=== PATIENT | female | born 1970 | race Two or more races ===

== ENCOUNTER 2017-07-29 21:30 | Emergency (ER) | payer MEDICAID ==
[~2017-07-29] VITALS: Ht 157.5 cm; Wt 66.7 kg
[2017-07-29 23:07] LABS: Urine Bacteria NONE SEEN /hpf (None Seen); Urine Blood Negative /uL (Negative); Urine Specific Gravity 1.012 (1.001-1.035); Urine WBC 1 /hpf (0 - 5)
[2017-07-29 23:22] LABS: Basophils # (auto) 0 uL; Basophils % (auto) 0.8 % (0.0-2.0); Eosinophils # (auto) 0.1 uL; Eosinophils % (auto) 1.8 % (0.0-7.0); Hematocrit 37.9 % (36.0-46.0); Hemoglobin 12.5 g/dL (12.2-16.2); Lymphocytes # (auto) 1.7 uL; Lymphocytes % (auto) 36.8 % (10.0-50.0); Mean Corpuscular Hemoglobin 30.1 pg (28.0-32.0); Mean Corpuscular Volume 91.4 fL (80.0-100.0); Monocytes # (auto) 0.4 uL; Monocytes % (auto) 9.4 % (0.0-12.0); Neutrophils # (auto) 2.3 uL; Neutrophils % (auto) 51.2 % (37.0-80.0); Nucleated Red Blood Cells % 0.2 %; Platelet Count (auto) 233 10^3/uL (140-450); Red Blood Cells 4.14 10^6/uL (4.0-5.20); Red Cell Distribution Width 15.4 % (11.8-14.3); White Blood Cell 4.6 10^3/uL (4.4-10.8)
[2017-07-29 23:30] LABS: Albumin 4.1 g/dL (3.4-5.0); BUN/Creatinine Ratio 28.2; Calcium 8.8 mg/dL (8.5-10.1); Potassium 3.9 mmol/L (3.5-5.1)
[2017-07-29 23:32] LABS: Bilirubin, Total 0.3 mg/dL (0.2-1.0); Total Protein 7.1 g/dL (6.4-8.2)
[2017-07-30 00:30] VITALS: BP 112/62
== END 2017-07-30 02:29 | disposition home or self-care (01) ==
LOC: ER 21:30
DX: N30.90 Cystitis, unspecified without hematuria (principal); D21.9 Benign neoplasm of connective and other soft tissue, unspecified; Z98.51 Tubal ligation status
CPT/HCPCS: 36415; 74176; 80053; 81001; 85025

== ENCOUNTER 2025-07-14 18:21 | Inpatient (IN) | payer MEDICAID ==
[~2025-07-14] VITALS: Ht 157.5 cm; Wt 68.2 kg
[2025-07-14 18:58] LABS: Hematocrit 38.4 % (36.0-46.0); Hemoglobin 12.9 g/dL (12.2-16.2); Mean Corpuscular Hemoglobin 30.9 pg (28.0-32.0); Mean Corpuscular Volume 92.0 fL (80.0-100.0); Nucleated Red Blood Cells % 0.1 %
[2025-07-14 19:16] LABS: Alanine Aminotransferase 37 U/L (7-40); Albumin 4.2 g/dL (3.2-4.8); Alkaline Phosphatase 90 U/L (46-116); Anion Gap 7 (5-15); BUN/Creatinine Ratio 21.3 (10.0-20.0); Bilirubin, Total 0.4 mg/dL (0.2-1.0); Blood Urea Nitrogen 19 mg/dL (9-23); Calcium 9.3 mg/dL (8.7-10.4); Carbon Dioxide 29 mmol/L (20-31); Glucose 103 mg/dL (74-106); Magnesium 1.9 mg/dL (1.6-2.6); Potassium 3.8 mmol/L (3.5-5.1); Sodium 144 mmol/L (136-145); Total Protein 6.2 g/dL (5.7-8.2)
--- NOTE | 2025-07-14 19:17 | ED.PDOC ---
History of Present Illness HPI Comments 55 y/o Egyptian-speaking F presents with c/c of nonradiating, substernal chest pain. Patient endorses on 2x day history of constant, tightening pain, that worsens at night time. Patient also complains of intermittent muscle spasms and reports an isolated episode of eye twitching/droop 2x months ago. No reported shortness of breath, nausea, vomiting, or further acute symptoms. Patient is being evaluated for possible asthma, currently, and reports only history of C- section and family history of heart disease. 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: No Pertinent PHYSICAL EDUCATION TEACHER History Family History Family History: Reviewed,noncontributory to illness, No family hx of Cancer, No family hx of DM, No family hx of HTN, No family hx ofKidney shakeel, No family hx of Liver shakeel, No family hx of Lung shakeel, No family hx of Stroke, Family hx of heart shakeel Social History Smoker: Non-Smoker Alcohol: Denies ETOH Use Drugs: Denies Drug Use Lives In: Home Constitutional: denies: chills, diaphoresis, fatigue, fever, malaise, sweats, weakness, others EENTM: reports: others (eye twitching/droop); denies: blurred vision, double vision, ear bleeding, ear discharge, ear drainage, ear pain, ear ringing, eye pain, eye redness, hearing loss, mouth pain, mouth swelling, nasal discharge, nose bleeding, nose congestion, nose pain, photophobia, tearing, throat pain, throat swelling, voice changes Respiratory: denies: cough, hemoptysis, orthopnea, SOB at rest, shortness of breath, SOB with excertion, stridor, wheezing, others Cardiovascular: reports: chest pain; denies: dizzy spells, diaphoresis, Dyspnea on exertion, edema, irregular heart beat, left arm pain, lightheadedness, palpitations, PND, syncope, others Gastrointestinal: denies: abdomen distended, abdominal pain, blood streaked bowels, constipated, diarrhea, dysphagia, difficulty swallowing, hematemesis, melena, nausea, poor appetite, poor fluid intake, rectal bleeding, rectal pain, vomiting, others Genitourinary: denies: abnormal vagina bleeding, burning, dyspareunia, dysuria, flank pain, frequency, hematuria, incontinence, pain, , vagina discharge, urgency, others Neurological: denies: dizziness, fainting, headache, left sided numbness, left sided weakness, numbness, paresthesia, pre-existing deficit, right sided numbness, right sided weakness, seizure, speech problems, tingling, tremors, weakness, others Musculoskeletal: reports: others (muscle spasms ); denies: back pain, gout, joint pain, joint swelling, muscle pain, muscle stiffness, neck pain Integumetry: denies: bruises, change in color, change in hair/nails, dryness, laceration, lesions, lumps, rash, wounds, others Allergic/Immunocompromised: denies: Difficulty Healing, Frequent Infections, Hives, Itching, others Hematologic/Lymphatic: denies: anemia, blood clots, easy bleeding, easy bruising, swollen glands, others Endocrine: denies: excessive hunger, excessive sweating, excessive thirst, excessive urination, flushing, intolerance to cold, intolerance to heat, unexplained weight gain, unexplained weight loss, others Psychiatric: denies: anxiety, bipolar disorder, depression, hopeless, panic disorder, schizophrenia, sleepless, suicidal, others All Other Systems: Reviewed and Negative Physical Exam General Appearance: Moderate Distress HEENT: Normal ENT Inspection, Pharynx Normal, TMs Normal Neck: Full Range of Motion, Non-Tender, Normal, Normal Inspection Respiratory: Chest Non-Tender, Lungs Clear, No Accessory Muscle Use, No Respiratory Distress, Normal Breath Sounds Cardiovascular: No Edema, No JVD, No Murmur, No Gallop, Normal Peripheral Pulses, Regular Rate/Rhythm Breast Exam: Deferred Gastrointestinal: No Organomegaly, Non Tender, No Pulsatile Mass, Normal Bowel Sounds, Soft Genitalia: Deferred Pelvic: Deferred Rectal: Deferred Extremities: No calf tenderness, Normal capillary refill, Normal inspection, Normal range of motion, Non-tender, No pedal edema Musculoskeletal : Apperance: Normal 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 Was a procedure done?: No EKG EKG : Pulse Rate (adult): 68 [place]: Normal Cardiac Rhythm: NSR Block: None Hypertrophy: None ST: Normal Differential Dx Considerations may include: GA, PE, ACS, URI, PNA, angina, anxiety, among others X-Ray, Labs, Meds, VS Vital Signs Date Time Temp Pulse Resp B/P (MAP) Pulse Ox O2 Delivery O2 Flow Rate FiO2 07/14/25 20:03 66 07/14/25 19:17 68 07/14/25 18:34 98.5 68 18 123/77 100 98.5 Lab Test 07/14/25 19:37 07/14/25 18:40 Range/Units Troponin I High Sensitivity 4 4 </=34 ng/L White Blood Count 5.1 4.4-10.8 10^3/uL Red Blood Count 4.17 4.0-5.20 10^6/uL Hemoglobin 12.9 12.2-16.2 g/dL Hematocrit 38.4 36.0-46.0 % Mean Corpuscular Volume 92.0 80.0-100.0 fL Mean Corpuscular Hemoglobin 30.9 28.0-32.0 pg Mean Corpuscular Hemoglobin Concent 33.6 32.0-36.0 g/dL Red Cell Distribution Width 14.0 11.8-14.3 % Platelet Count 196 140-450 10^3/uL Mean Platelet Volume 8.9 6.9-10.8 fL Neutrophils (%) (Auto) 60.5 37.0-80.0 % Lymphocytes (%) (Auto) 30.8 10.0-50.0 % Monocytes (%) (Auto) 6.8 0.0-12.0 % Eosinophils (%) (Auto) 1.4 0.0-7.0 % Basophils (%) (Auto) 0.5 0.0-2.0 % Neutrophils # (Auto) 3.1 1.6-8.6 10 ^3/uL Lymphocytes # (Auto) 1.6 0.4-5.4 10 ^3/uL Monocytes # (Auto) 0.3 0-1.3 10 ^3/uL Eosinophils # (Auto) 0.1 0-0.8 10 ^3/uL Basophils # (Auto) 0 0-0.2 10 ^3/uL Nucleated Red Blood Cells 0.1 % Sodium Level 144 136-145 mmol/L Potassium Level 3.8 3.5-5.1 mmol/L Chloride Level 108 H 98-107 mmol/L Carbon Dioxide Level 29 20-31 mmol/L Anion Gap 7 5-15 Blood Urea Nitrogen 19 9-23 mg/dL Creatinine 0.89 0.550-1.02 mg/dL Glomerular Filtration Rate Calc 77 >90 mL/min BUN/Creatinine Ratio 21.3 H 10.0-20.0 Serum Glucose 103 74-106 mg/dL Calcium Level 9.3 8.7-10.4 mg/dL Magnesium Level 1.9 1.6-2.6 mg/dL Total Bilirubin 0.4 0.2-1.0 mg/dL Aspartate Amino Transferase (AST) 34 13-40 U/L Alanine Aminotransferase (ALT) 37 7-40 U/L Alkaline Phosphatase 90 46-116 U/L Total Protein 6.2 5.7-8.2 g/dL Albumin 4.2 3.2-4.8 g/dL PROCEDURE(s): CXR2 - CHEST TWO VIEWS ROUTINE IMPRESSION: 1. No acute cardiopulmonary disease. 2. Scarring anteriorly in the right lower lobe. IV Hep-Lock has been established The patient's CBC and chemistry panel are within normal limits The troponin level x2 is negative At this time, the patient has been acting like to the hospitalist The patient understands and agrees with the management Images Reviewed?: Images reviewed and evaluated by me Time of 1ST Reevaluation: 19:00 Reevaluation 1ST: Unchanged Patient Education/Counseling: Diagnosis, Treatment, Prognosis Family Education/Counseling: No Family Present SEPSIS Sepsis Screen Date sepsis recognized/suspect: Jul 14, 2025 Time Sepsis recognized/suspect: 1833 Recent Procedure: No On Antibiotic Therapy: No Respiratory Rate >20: No Heart Rate >90: No Temp<36 C (96.8 F) or >38.3 C: No SBP <90 or MAP <65 mmHG: No New Acute Mental Status Change: No Is the patient on CPAP, BIPAP,: No Physician Orders Urinalysis (07/14/25 18:38) Troponin-I Hs (07/14/25 21:38) Electrocardigram (07/14/25 19:38) Electrocardigram (07/14/25 21:38) Chest Two Views Routine (07/14/25 19:06) Heplock Iv (07/14/25 ) Vital Signs Date Time Temp Pulse Resp B/P (MAP) Pulse Ox O2 Delivery O2 Flow Rate FiO2 07/14/25 20:03 66 07/14/25 19:17 68 07/14/25 18:34 98.5 68 18 123/77 100 98.5 Laboratory Tests Test 07/14/25 18:40 White Blood Count 5.1 10^3/uL (4.4-10.8) Departure 1 Departure Time of Disposition: 20:49 Impression: Primary Impression: Acute chest pain Disposition: ADMITTED INPATIENT Admit to: [facility] Condition: Fair Critical Care Note Critical Care Time?: No Stability Stability form required: Yes Unstable for transfer: Telemetry monitoring (Telemetry monitoring required), ED Physician Assesment (Clinical assesment) Heart Score Heart Score: Heart Score Response (Comments) Value History Moderate Suspicious 1 EKG Normal 0 Age 45-64 1 Risk Factors 1 or 2 risk factors 1 Troponin Normal limit 0 Total 3 I personally scribed for MARY ELAINE MD ([email or web address]) on 07/14/25 at 19:17. Electronically submitted by Marshall Ireland ([email or web address]). I personally scribed for MARY ELAINE MD ([email or web address]) on 07/14/25 at 20:01. Electronically submitted by Marshall Ireland [email or web address]). MARY ELAINE MD Jul 14, 2025 19:17
[2025-07-14 19:19] LABS: Chloride 108 mmol/L (98-107)
--- NOTE | 2025-07-14 19:53 | DVH ---
XY CHEST TWO VIEWS ROUTINE CLINICAL HISTORY: cp COMPARISON: None TECHNIQUE: Frontal and lateral view of the chest was obtained FINDINGS: Lines and Tubes: None Lungs: No focal consolidation. Pleura: No effusion. No pneumothorax. Cardiomediastinal contours: Unremarkable Bones: No acute osseous abnormality. IMPRESSION: 1. No acute cardiopulmonary disease. 2. Scarring anteriorly in the right lower lobe.
--- NOTE | 2025-07-14 20:06 | ECG ---
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
[2025-07-15] MEDS ORDERED: KETOROLAC TROMETH 30 MG/ML 1ML VIAL IV PRN (03:15)
[2025-07-15] MEDS: ACETAMINOPHEN 325 MG TAB PO SCH (03:15)
--- NOTE | 2025-07-15 04:09 | DVHHPRES ---
History of Present Illness Resident Creating Document: BERNARD SANDHU RESIDENT History of Present Illness Rosanna Cisneros is a 55-year-old Indonesian-speaking female with past medical history of dyslipidemia presented to the hospital with complaints of chest pain since 3 days. Patient reports that she went to her PCP who send her to the ER. She also complains of associated spasms and cramps in the arms and eyes Since 5 months. She also reports of a right shoulder pain since 3 months. She denies any fever, shortness of breath or abdominal pain. PMHx: dyslipidemia, asthma PSHx: section Family history: coronary artery disease in grandfather Social history: denies smoking, alcohol or illicit drug use. Lives with family in his. Home medication: None Allergic history: no known allergies Review of Systems Review of Systems General: patient denies fever, fatigue, weaknes, sweating, any recent changes in appetite and weight HEENT: No headaches, visiual changes, hearing loss, tinnitus, nasal congestion and discharge, and sore throat. Cardiovascular: complains of chest pain Respiratory: No cough, and wheezing. Gastrointestinal: Denies nausea, vomiting, dysphagia, odynophagia, heartburn, abdominal pain, flatulence, bloating, diarrhea, constipation, change in stool, or blood in stool. Genitourinary: No dysuria, hematuria, discharge, frequency, urgency, nocturia, incontinence, and urinary retention. Endocrine: No heat or cold intolerance, polydipsia, polyuria, and polyphagia. Neurological: No dizziness, extremity weakness and numbness, tremors, gait disturbance, seizures, and memory impairment. Psychiatric: Denies depression, anxiety,or insomnia. Musculoskeletal: complains of shoulder pain Skin: No rashes, itching, skin lesion, changes in hair, nail, skin texture and breast. Hematologic/Lymphatic: Denies easy bruising, bleeding tendencies, or lymph node enlargement. Allergies: Coded Allergies: NO KNOWN ALLERGIES (Unverified , 05/09/11) Medications Current Medications Medications Dose Ordered Sig/[place] Route Start Time Stop Time Status Last Admin Dose Admin Acetaminophen 650 mg Q6HR PO 07/15/25 03:15 Ketorolac Tromethamine 15 mg Q6HPRN PRN IV 07/15/25 03:15 07/20/25 03:14 Aspirin 81 mg DAILY PO 07/15/25 10:00 Atorvastatin Calcium 40 mg HS PO 07/15/25 22:00 Enoxaparin Sodium 40 mg DAILY SC 07/15/25 10:00 Exam Vital Signs Vital Signs Date Time Temp Pulse Resp B/P (MAP) Pulse Ox O2 Delivery O2 Flow Rate FiO2 07/15/25 03:02 97.1 63 15 137/88 (104) 98 97.1 Exam General Appearance: Alert, Oriented X3, Cooperative, No acute distress HEENT: Atraumatic, PERRLA, EOMI, Mucous membrane moist/pink Respiratory: Clear to auscultation, Normal air movement Cardiovascular: Regular rate, Normal S1, Normal S2, No murmurs, chest wall tenderness present Abdominal: Normal bowel sounds, Soft, No tenderness, No hepatospenomegaly, No masses Extremities: No clubbing, No cyanosis, No edema, Normal pulses, No tenderness/swelling Skin: No rashes, No breakdown, No significant lesion Neuro: Normal gait, Normal speech, Strength at 5/5 X4 ext, Normal tone, Sensation intact, Cranial nerves 3-12 NL, Reflexes 2+ Psych/Mental Status: Mental status NL, Mood NL Labs/Xrays Labs Test 07/14/25 19:37 07/14/25 18:40 Range/Units Troponin I High Sensitivity 4 </=34 ng/L White Blood Count 5.1 4.4-10.8 10^3/uL Red Blood Count 4.17 4.0-5.20 10^6/uL Hemoglobin 12.9 12.2-16.2 g/dL Hematocrit 38.4 36.0-46.0 % Mean Corpuscular Volume 92.0 80.0-100.0 fL Mean Corpuscular Hemoglobin 30.9 28.0-32.0 pg Mean Corpuscular Hemoglobin Concent 33.6 32.0-36.0 g/dL Red Cell Distribution Width 14.0 11.8-14.3 % Platelet Count 196 140-450 10^3/uL Mean Platelet Volume 8.9 6.9-10.8 fL Neutrophils (%) (Auto) 60.5 37.0-80.0 % Lymphocytes (%) (Auto) 30.8 10.0-50.0 % Monocytes (%) (Auto) 6.8 0.0-12.0 % Eosinophils (%) (Auto) 1.4 0.0-7.0 % Basophils (%) (Auto) 0.5 0.0-2.0 % Neutrophils # (Auto) 3.1 1.6-8.6 10 ^3/uL Lymphocytes # (Auto) 1.6 0.4-5.4 10 ^3/uL Monocytes # (Auto) 0.3 0-1.3 10 ^3/uL Eosinophils # (Auto) 0.1 0-0.8 10 ^3/uL Basophils # (Auto) 0 0-0.2 10 ^3/uL Nucleated Red Blood Cells 0.1 % Sodium Level 144 136-145 mmol/L Potassium Level 3.8 3.5-5.1 mmol/L Chloride Level 108 H 98-107 mmol/L Carbon Dioxide Level 29 20-31 mmol/L Anion Gap 7 5-15 Blood Urea Nitrogen 19 9-23 mg/dL Creatinine 0.89 0.550-1.02 mg/dL Glomerular Filtration Rate Calc 77 >90 mL/min BUN/Creatinine Ratio 21.3 H 10.0-20.0 Serum Glucose 103 74-106 mg/dL Calcium Level 9.3 8.7-10.4 mg/dL Magnesium Level 1.9 1.6-2.6 mg/dL Total Bilirubin 0.4 0.2-1.0 mg/dL Aspartate Amino Transferase (AST) 34 13-40 U/L Alanine Aminotransferase (ALT) 37 7-40 U/L Alkaline Phosphatase 90 46-116 U/L Total Protein 6.2 5.7-8.2 g/dL Albumin 4.2 3.2-4.8 g/dL SEPSIS Sepsis Screen Date sepsis recognized/suspect: Jul 14, 2025 Time Sepsis recognized/suspect: 1833 Recent Procedure: No On Antibiotic Therapy: No Respiratory Rate >20: No Heart Rate >90: No Temp<36 C (96.8 F) or >38.3 C: No SBP <90 or MAP <65 mmHG: No New Acute Mental Status Change: No Is the patient on CPAP, BIPAP,: No Physician Orders Admit (07/14/25 23:33) Code Status (07/14/25 23:33) Complete Blood Count (07/15/25 04:00) Comprehensive Metabolic Panel (07/15/25 04:00) Cardiac Diet-2gna,Lofat,Lochol (07/15/25 Breakfast) Condition: Fair (07/14/25 23:33) Echo 2d Mode Cardiac Dop (07/15/25 03:01) Urinalysis (07/15/25 03:01) Drug Screen (07/15/25 03:01) PTPTT (07/15/25 03:01) Thyroid Stimulating Hormone (07/15/25 03:01) Lipid Panel (07/15/25 03:01) Acetaminophen Tablet (Tylenol Tablet) (07/15/25 03:15) Ketorolac Injection (Toradol Injection) (07/15/25 03:15) Aspirin Enteric Coated Tablet (Ecotrin E (07/15/25 10:00) Atorvastatin (Lipitor) (07/15/25 22:00) Enoxaparin Sodium (Lovenox) (07/15/25 10:00) Vital Signs Date Time Temp Pulse Resp B/P (MAP) Pulse Ox O2 Delivery O2 Flow Rate FiO2 07/15/25 03:02 97.1 63 15 137/88 (104) 98 97.1 Laboratory Tests Test 07/14/25 18:40 White Blood Count 5.1 10^3/uL (4.4-10.8) Assessment/Plan Assessment/Plan Assessment and plan Chest pain possibly due to unstable angina/ musculoskeletal EKG Echo Aspirin, atorvastatin Lipid panel, TSH IV Toradol p.r.n., scheduled Tylenol Dyslipidemia Not on any home medication Follow lipid panel History of asthma Follow up with PCP on discharge PUD prophylaxis: not needed DVT prophylaxis: Levonox 40mg Barriers to discharge: Medical diagnosis and management in progress. Patient lives with family. Independent for ADL. PCP: Dr. Genitle Specialist Relevent To Admission: None Case discussed with Dr. Donald Code Status: Full Code. Complex patient care discussion needed. Spend total 33 minutes for bedside assessment, case discussion and management. Plan discussed with: Patient My Orders Orders - BERNARD SANDHU RESIDENT Procedure Category Date Status Time Admit ADMIT 07/14/25 Transmitted 23:33 Code Status CODE 07/14/25 Transmitted 23:33 Complete Blood Count LAB 07/15/25 Logged 04:00 Comprehensive LAB 07/15/25 Logged Metabolic Panel 04:00 Cardiac DIET 07/15/25 Transmitted Diet-2gna,Lofat,Lochol Breakfast Condition: Fair PETE 07/14/25 In Process 23:33 Echo 2d Mode Cardiac US 07/15/25 Logged DOP 03:01 Urinalysis LAB 07/15/25 Uncollected 03:01 Drug Screen LAB 07/15/25 Logged 03:01 PTPTT LAB 07/15/25 Logged 03:01 Thyroid Stimulating LAB 07/15/25 Logged Hormone 03:01 Lipid Panel LAB 07/15/25 Logged 03:01 Acetaminophen Tablet PHA 07/15/25 In Process (Tylenol Tablet) 03:15 Ketorolac Injection PHA 07/15/25 In Process (Toradol Injection) 03:15 Aspirin Enteric PHA 07/15/25 In Process Coated Tablet 10:00 Atorvastatin (Lipitor) PHA 07/15/25 In Process 22:00 Enoxaparin Sodium PHA 07/15/25 In Process (Lovenox) 10:00 Visit Coding STANDARD RES Billing Provider: KANU DONALD MD Date of Service if different f: Jul 15, 2025 Common Visit Codes: 52589-EZBWIVA INP/OBS CARE (HIGH) Secondary Visit Codes: 61055-CMSYSJZN CARE PLAN 30 MINUTES BERNARD SANDHU RESIDENT Jul 15, 2025 04:09
[2025-07-15 04:58] VITALS: BP 129/76; PULSE 86; RESP 18; TEMP 98.2; O2SAT 98; O2SAT 99
[2025-07-15 05:00] VITALS: BP 129/80; PULSE 65; RESP 18; TEMP 97.8; O2SAT 99
[2025-07-15 08:00] VITALS: PULSE 66; PULSE 69; RESP 16; O2SAT 99
[2025-07-15 08:18] LABS: Hematocrit 42.0 % (36.0-46.0); Hemoglobin 14.0 g/dL (12.2-16.2); Mean Corpuscular Hemoglobin 30.4 pg (28.0-32.0); Mean Corpuscular Volume 91.7 fL (80.0-100.0); Nucleated Red Blood Cells % 0.1 %
[2025-07-15 08:41] LABS: INR 1.02 (0.9-1.15); Partial Thromboplastin Time 27.1 SEC (24.5-34.5); Prothrombin Time 10.8 sec (9.3-11.8)
[2025-07-15 08:58] LABS: Triglycerides 60 mg/dL (< 150)
[2025-07-15 09:00] VITALS: BP 111/70; PULSE 69; RESP 16; TEMP 97.7; O2SAT 99
[2025-07-15 09:03] LABS: Cholesterol 217 mg/dL (< 200); HDL Cholesterol 64 mg/dL (40-59)
[2025-07-15 09:28] LABS: Alanine Aminotransferase 37 U/L (7-40); Albumin 4.5 g/dL (3.2-4.8); Alkaline Phosphatase 90 U/L (46-116); Anion Gap 11 (5-15); BUN/Creatinine Ratio 21.1 (10.0-20.0); Blood Urea Nitrogen 15 mg/dL (9-23); Calcium 9.5 mg/dL (8.7-10.4); Carbon Dioxide 28 mmol/L (20-31); Glucose 92 mg/dL (74-106); Potassium 3.9 mmol/L (3.5-5.1); Total Protein 6.5 g/dL (5.7-8.2)
[2025-07-15 09:29] LABS: Bilirubin, Total 0.5 mg/dL (0.2-1.0)
[2025-07-15 09:32] LABS: Chloride 108 mmol/L (98-107); Sodium 147 mmol/L (136-145)
[2025-07-15] MEDS: ASPirin-EC 81 mg tab PO SCH (10:10)
[2025-07-15] MEDS: ENOXAPARIN SOD 40 MG/0.4 ML SYRINGE SC SCH (10:10)
[2025-07-15] MEDS: D5W 5% 1,000 ML IV ONE (12:15)
[2025-07-15 13:00] VITALS: BP 109/74; PULSE 58; RESP 16; TEMP 98.1; O2SAT 98
[2025-07-15] MEDS ORDERED: PANT40T PO (13:52)
--- NOTE | 2025-07-15 13:55 | ECG ---
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
[2025-07-15] MEDS: PANTOPRAZOLE 40 MG/10 ML VIAL INJ IV ONE (14:00)
--- NOTE | 2025-07-15 16:19 | DVHDSRES ---
Discharge Summary Date of Admission Resident Creating Document: JEREMY LEVY RESIDENT Jul 14, 2025 at 23:33 Date of Discharge: Jul 15, 2025 Admitting Diagnosis #Acute chest pain possibly due to GERD #ACS ruled out #Chronic Dyslipidemia #Chronic asthma not in exacerbation Wounds: No wounds present during the admission. Labs/Diagnostic Data: Laboratory Results Test 07/15/25 07:44 07/14/25 19:37 07/14/25 18:40 White Blood Count 3.5 10^3/uL (4.4-10.8) Red Blood Count 4.58 10^6/uL (4.0-5.20) Hemoglobin 14.0 g/dL (12.2-16.2) Hematocrit 42.0 % (36.0-46.0) Mean Corpuscular Volume 91.7 fL (80.0-100.0) Mean Corpuscular Hemoglobin 30.4 pg (28.0-32.0) Mean Corpuscular Hemoglobin Concent 33.2 g/dL (32.0-36.0) Red Cell Distribution Width 14.0 % (11.8-14.3) Platelet Count 201 10^3/uL (140-450) Mean Platelet Volume 8.8 fL (6.9-10.8) Neutrophils (%) (Auto) 48.4 % (37.0-80.0) Lymphocytes (%) (Auto) 40.3 % (10.0-50.0) Monocytes (%) (Auto) 8.7 % (0.0-12.0) Eosinophils (%) (Auto) 1.7 % (0.0-7.0) Basophils (%) (Auto) 0.9 % (0.0-2.0) Neutrophils # (Auto) 1.7 10 ^3/uL (1.6-8.6) Lymphocytes # (Auto) 1.4 10 ^3/uL (0.4-5.4) Monocytes # (Auto) 0.3 10 ^3/uL (0-1.3) Eosinophils # (Auto) 0.1 10 ^3/uL (0-0.8) Basophils # (Auto) 0 10 ^3/uL (0-0.2) Nucleated Red Blood Cells 0.1 % Prothrombin Time 10.8 sec (9.3-11.8) Prothrombin Time INR 1.02 (0.9-1.15) Activated Partial Thromboplast Time 27.1 SEC (24.5-34.5) Sodium Level 147 mmol/L (136-145) Potassium Level 3.9 mmol/L (3.5-5.1) Chloride Level 108 mmol/L (98-107) Carbon Dioxide Level 28 mmol/L (20-31) Anion Gap 11 (5-15) Blood Urea Nitrogen 15 mg/dL (9-23) Creatinine 0.71 mg/dL (0.550-1.02) Glomerular Filtration Rate Calc 100 mL/min (>90) BUN/Creatinine Ratio 21.1 (10.0-20.0) Serum Glucose 92 mg/dL (74-106) Calcium Level 9.5 mg/dL (8.7-10.4) Total Bilirubin 0.5 mg/dL (0.2-1.0) Aspartate Amino Transferase (AST) 34 U/L (13-40) Alanine Aminotransferase (ALT) 37 U/L (7-40) Alkaline Phosphatase 90 U/L (46-116) Total Protein 6.5 g/dL (5.7-8.2) Albumin 4.5 g/dL (3.2-4.8) Triglycerides Level 60 mg/dL (< 150) Cholesterol Level 217 mg/dL (< 200) LDL Cholesterol 136 mg/dL (< 100) HDL Cholesterol 64 mg/dL (40-59) Thyroid Stimulating Hormone (TSH) 3.25 uIU/mL (0.55-4.78) Troponin I High Sensitivity 4 ng/L (</=34) Magnesium Level 1.9 mg/dL (1.6-2.6) Other Laboratory Tests 07/15/25 07:44 Brief Hx & Hospital Course: PHI: Rosanna Howell is a 55-year-old female, with past medical history of dyslipidemia and asthma. The patient came to [facility] with chief complaints of 3 days of retro-sternal chest pain, 9/10, pressure like, continues, no irradiation, associated with nausea. The patient reported the chest pain started at night when she was lying down. On further questioning, the patient reported she started having GERD problems after drinking pre-drink for a colonoscopy 2 months ago, presenting a lot of nausea and vomit, after that episode she has been having episodes retro-sternal chest pain. The Patient reports that she went to her PCP who send her to the ER. The patient denies any fever, shortness of breath or abdominal pain. The patient was admitted for further assessment and management. PMHx: dyslipidemia, asthma PSHx: section Family history: coronary artery disease in grandfather Social history: denies smoking, alcohol or illicit drug use. Lives with family in his. Home medication: None Allergic history: no known allergies Hospital course: During her admission in [facility] the patient was assessed and evaluated at bedside. Initial evaluation showed: EKG: normal sinus, HR 66, troponin 4 and 4. ECHO was requested. The patient reported improvement after analgesia, and pantoprazole IV. On her second day of admission, the patient showed significant medical improvement. Chest pain resolved 0/10, labs were grossly unremarkable. The patient will be discharge home with pantoprazole 40mg po daily and she will follow up in the d/c clinic within 72 hrs and with PCP in 1 week. Also, the patient f/u with GI for possible endoscopy. All patient's question were answered, warning signs and when to return to the ED recommendations were given, patient agreed to understanding. Review of Systems General: patient denies fever, fatigue, weakness, sweating, any recent changes in appetite and weight HEENT: No headaches, visiual changes, hearing loss, tinnitus, nasal congestion and discharge, and sore throat. Cardiovascular: reports chest pain has stopped. 0/10 today. Respiratory: No cough, and wheezing. Gastrointestinal: Denies nausea, vomiting, dysphagia, odynophagia, heartburn, abdominal pain, flatulence, bloating, diarrhea, constipation, change in stool, or blood in stool. Genitourinary: No dysuria, hematuria, discharge, frequency, urgency, nocturia, incontinence, and urinary retention. Endocrine: No heat or cold intolerance, polydipsia, polyuria, and polyphagia. Neurological: No dizziness, extremity weakness and numbness, tremors, gait disturbance, seizures, and memory impairment. Psychiatric: Denies depression, anxiety,or insomnia. Musculoskeletal: shoulder pain is better after analgesia. Skin: No rashes, itching, skin lesion, changes in hair, nail, skin texture and breast. Hematologic/Lymphatic: Denies easy bruising, bleeding tendencies, or lymph node enlargement. Physical exam: General Appearance: Alert, Oriented X3, Cooperative, No acute distress HEENT: Atraumatic, PERRLA, EOMI, Mucous membrane moist/pink Respiratory: Clear to auscultation, Normal air movement Cardiovascular: Regular rate, Normal S1, Normal S2, No murmurs. Abdominal: Normal bowel sounds, Soft, No tenderness, No hepatospenomegaly, No masses Extremities: No clubbing, No cyanosis, No edema, Normal pulses, No tenderness/swelling Skin: No rashes, No breakdown, No significant lesion Neuro: Normal gait, Normal speech, Strength at 5/5 X4 ext, Normal tone, Sensation intact, Cranial nerves 3-12 NL, Reflexes 2+ Psych/Mental Status: Mental status NL, Mood NL Plan: Diet low fat diet Avoid food with irritants: coffee, fatty food, spice food. Pantoprazol 40mg po daily F/u with GI for GERD and consider Endoscopy F/u with PCP in 1 week F/U in D/C clinic within 72 hrs for dull ECHO report result. Operations or Procedures PROCEDURE(s): CXR2 - CHEST TWO VIEWS ROUTINE REASON: cp ORDER NUMBER(s): [id number], ACCESSION NUMBER(s): [id number] CHEST TWO VIEWS ROUTINE CLINICAL HISTORY: cp COMPARISON: None TECHNIQUE: Frontal and lateral view of the chest was obtained FINDINGS: Lines and Tubes: None Lungs: No focal consolidation. Pleura: No effusion. No pneumothorax. Cardiomediastinal contours: Unremarkable Bones: No acute osseous abnormality. IMPRESSION: 1. No acute cardiopulmonary disease. 2. Scarring anteriorly in the right lower lobe. ATED BY: LAN FELDMAN Jr., DO DICTATED DATE/TIME: 07/14/251950 SIGNED BY: LAN FELDMAN Jr., SIGNED DATE/TIME: 07/14/251950 PROCEDURE(s): EKG - ELECTROCARDIGRAM ORDER NUMBER(s): [id number], ACCESSION NUMBER(s): [id number] [facility] Test Date: 2025-07-14 Test Time: 20:03:30 Pat Name: ROSANNA LEWIS Department: ED Room: Gender: F Foreign Language Stenographer: YA ROLDAN: 1970 Requested By: MARY ELAINE Order Number: [id number] Reading MD: Measurements Intervals [place] Rate: 66 P: 56 AR: 127 QRS: 63 QRSD: 75 T: 21 QT: 389 QTc: 408 Interpretive Statements Sinus rhythm Please click the below link to view image of tracing. DICTATED BY: DICTATED DATE/TIME:07/14/252002 ELECTRONICALLY SIGNED BY: ELECTRONICALLY CO-SIGNED BY: Condition at Discharge: Stable Final Diagnosis/Problems List #Acute chest pain , likely costochondritis # acute flare of chronic GERD, possible #ACS ruled out #Chronic Dyslipidemia #Chronic asthma not in exacerbation Discharge Disposition: Home SNF Discharge Will this Physician continue t: No Discharge Instruct/Medications Diet: Cardiac 2g Na,low cholest Diet comment: Activity: No Restrictions, As Tolerated Follow Up/Referral: F/U with PCP in 1 week F/u with d/c clinic in 72hrs F/u with GI in 1 week for endoscopy as out patient. Medications: ASCVD risk 1.9 no statins needed. Pantoprazol 40mg po daily x 30 days Scheduled Pantoprazole Sodium Sesquihydr (Pantoprazole Sodium), 40 MG PO DAILY Discharge Statement: "Patient was advised to return to the ER or call 911 if any headaches, dizziness, shortness of breath, chest pain, abdominal pain, bleeding, fevers, or worsening of medical condition. Patient was counseled about treatment plan, medications, possible side effects, patientverbalized understanding. All questions were answered to the best of my ability. This discharge took greater then 30 minutes in planning, reviewing documentation, counseling the patient, and discussing with other team members." Discharge Care Plan Instructions Take Rx medications, Notify MD of any issues, Keep list of meds w/ you, Do not drink ETOH/smoke, Call 911 in an emergency, F/U w/ PCP, Educate on timing of meds ASSESSMENT ASSESSMENT Assessment Acute chest pain possibly due to GERD ACS ruled out Chronic Dyslipidemia, ACVD 1.9 no statins needed. Chronic asthma not in exacerbation Disposition: discharge home no needs. PCP: Lorelei Bell Patient's status and discharge plan discussed with the patient >30min. Patients agrees with discharge plan. Case discussed with Dr. Cordoba Visit Coding STANDARD RES Billing Provider: SARAHY BHAKTA MD Date of Service if different f: Jul 15, 2025 Common Visit Codes: 16587-UUM/OBS DISCH DAY >30min JEREMY LEVY RESIDENT Jul 15, 2025 16:19 SARAHY BHAKTA MD Jul 17, 2025 09:23
[2025-07-15 16:44] VITALS: TEMP 36.7
[2025-07-15] MEDS ORDERED: ATORVASTATIN 20 MG TAB PO SCH (22:00)
== END 2025-07-15 17:15 | disposition home or self-care (01) | DRG 243 ==
LOC: ER 18:21 → OVERFLOW 23:33 → TELE-WESTW 07-15 04:10
PROVIDERS: ADMIT Student in an Organized Health Care Education/Training Program; ATTEND Student in an Organized Health Care Education/Training Program
DX: K21.9 Gastro-esophageal reflux disease without esophagitis (principal); E78.5 Hyperlipidemia, unspecified; J45.909 Unspecified asthma, uncomplicated; Z98.891 History of uterine scar from previous surgery; Z98.51 Tubal ligation status; Z82.49 Family history of ischemic heart disease and other diseases of the circulatory system
CPT/HCPCS: 36415; 71046; 80053; 80061; 83735; 84443; 84484; 85025; 85610; 85730; 93005; 93306; G0378